=== PATIENT | female | born 1980 | race Caucasian/White ===

== ENCOUNTER 2017-05-10 17:57 | Emergency (ER) | payer SELFPAY ==
[~2017-05-10] VITALS: Ht 160 cm; Wt 60.0 kg
[~2017-05-10 17:57] MED LIST: IBUP600 PO
--- NOTE | 2017-05-10 18:19 | PD ---
HPI Chief Complaint: medical clearance Time Seen by Provider: 18:15 Travel History International Travel<30 days: No Contact w/Intl Traveler<30days: No Traveled to known affect area: No History of Present Illness HPI 36 year white female presents to emergency department after being discharged from retirement. The patient was discharged and [facility] picked the patient up and brought her to the facility here. She was admitted to the retirement under a [place] act due to alcohol intoxication. She states that she was there nearly 12 hours. The patient here has no complaints. She states that she was instructed to leave with [facility] since there is no transportation for her from the retirement. Patient denies any suicidal or homicidal ideation. No toxic ingestions. No medical complaints. PFSH Past Medical History Anxiety: Yes Depression: Yes Cancer: No Diabetes: No Diminished Hearing: No Glaucoma: No Hepatitis: No Hiatal Hernia: No Hypertension: Yes Kidney Stones: Yes Psychiatric: Yes Respiratory: No Immunizations Current: Yes Seizures: Yes (PT STATES " YRS AGO RELATED TO DRUG USE") Thyroid Disease: No Tetanus Vaccination: < 5 Years ?: Not : 4 Para: 0 Miscarriage: 1 : 3 Past Surgical History Pacemaker: No Tonsillectomy: Yes Other Surgery: Yes (BREAST AUGUMENTATION x 2) Social History Alcohol Use: Yes (SOCIALLY MIX DRINKS,BEER) Tobacco Use: No Substance Use: No (HX OF USE - CANNABIS USE) Allergies-Medications (Allergen,Severity, Reaction): Coded Allergies: No Known Allergies (Verified , 07/16/15) Reported Meds & Prescriptions Reported Meds & Active Scripts Active Motrin 600 Mg Tab (Ibuprofen) 600 Mg Tab 600 Mg PO Q6H PRN Review of Systems Except as stated in HPI: all other systems reviewed are Neg Physical Exam Narrative GENERAL: This is a well-nourished, well-developed patient, in no apparent distress. Patient ambulates freely. She appears sober. SKIN: No rashes, ecchymoses or lesions. Warm and dry. HEAD: Atraumatic. Normocephalic. EYES: PERRL, EOMI, no discharge or injection. No scleral icterus. EARS: Clear NOSE: Nasal turbinates appear normal. THROAT: Mucosa pink and moist. Airway patent. NECK: Trachea midline. supple, moves head freely. LUNGS: Clear to auscultation. CV: Regular in rhythm. ABDOMEN: Soft nontender. EXT: No clubbing cyanosis or edema. MDM Medical Decision Making Medical Screen Exam Complete: Yes Emergency Medical Condition: Yes Medical Record Reviewed: Yes Differential Diagnosis Differential diagnoses: Alcohol intoxication, substance abuse, medical clearance Narrative Course The patient has no medical complaints. Patient is been medically cleared. Diagnosis Primary Impression: medical clearance exam Additional Instructions: Rest. Increase fluids. Avoid alcohol. Avoid illegal substances. Follow-up with [facility] for detox. Do not operate a car or any heavy machinery under the influence of alcohol or drugs. Follow-up with a medical doctor this week. Return to the ER for emergencies Med/Other Pt SpecificInfo: No Meds Exist/No RX given Disposition: 01 DISCHARGE HOME Condition: Stable Chetan Kingsley May 10, 2017 18:19
[2017-05-10 18:20] VITALS: BP 120/70; PULSE 65; RESP 16; TEMP 98.6; O2SAT 99
[2017-05-10 18:29] VITALS: BP 124/72
== END 2017-05-10 18:32 | disposition home or self-care (01) ==
LOC: NEDAMB 17:57
DX: F10.129 Alcohol abuse with intoxication, unspecified (principal); F41.9 Anxiety disorder, unspecified; F32.9 Major depressive disorder, single episode, unspecified; I10 Essential (primary) hypertension; R56.9 Unspecified convulsions; Z87.442 Personal history of urinary calculi; Z79.1 Long term (current) use of non-steroidal anti-inflammatories (NSAID)
CPT/HCPCS: 99283

== ENCOUNTER 2017-06-23 21:30 | Observation (INO) | payer SELFPAY ==
[~2017-06-23] VITALS: Ht 157.5 cm; Wt 49.8 kg
[2017-06-23 21:30] VITALS: BP 141/84; PULSE 136; RESP 24; TEMP 98.2; O2SAT 100
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
[2017-06-23] MEDS ORDERED: SODIUM CHLOR 0.9% 1000 ML INJ 1,000 ML IV ONE (21:45)
[2017-06-23] MEDS ORDERED: LORazepam 2 MG/ML VIAL IV PUSH ONE ×2 (21:45→22:00)
[2017-06-23 22:07] LABS: AUTOMATED NEUTROPHIL # 4.1 TH/MM3 (1.8-7.7); BASOPHIL % 0.6 % (0.0-2.0); EOSINOPHIL % 0.1 % (0.0-4.0); HEMATOCRIT 39.2 % (35.0-46.0); HEMO FLAGS DIFF FINAL; LYMPH % 25.1 % (9.0-44.0); LYMPHOCYTE # 1.5 TH/MM3 (1.0-4.8); MEAN CELL VOLUME 89.4 FL (80.0-100.0); MEAN CORPUSCULAR HEMOGLOBIN 29.5 PG (27.0-34.0); NEUT % 69.2 % (16.0-70.0); PLATELET COUNT 340 TH/MM3 (150-450); RED BLOOD COUNT 4.39 MIL/MM3 (4.00-5.30); RED CELL DISTRIBUTION WIDTH 13.3 % (11.6-17.2); WHITE BLOOD COUNT 5.9 TH/MM3 (4.0-11.0)
[2017-06-23 22:14] LABS: POTASSIUM 3.7 MEQ/L (3.5-5.1)
[2017-06-23 22:17] LABS: BICARBONATE 25.5 MEQ/L (21.0-32.0)
--- NOTE | 2017-06-23 22:45 | PD ---
Physical Exam Date Seen by Provider: Jun 23, 2017 Time Seen by Provider: 22:41 Narrative Crying, hysterical, anxious 36-year-old female screaming loudly and irrationally. Patient has laceration on her right hand and right foot that I was asked to repair by the provider Dr Odonnell. Patient to anxious and hysterical at this time. Dr. Odonnell ordered IV Ativan to help calm the patient. Patient became calm and I was able to used lidocaine to numb the right hand laceration however the patient still complained of pain when pressure was applied to the right hand and it felt as if there might be a foreign body in place. X-ray of the right hand and foot ordered and pending to assess for foreign bodies. Data Data Last Documented VS Vital Signs Date Time Temp Pulse Resp B/P (MAP) Pulse Ox O2 Delivery O2 Flow Rate FiO2 06/23/17 21:30 98.2 136 24 141/84 (103) 100 Orders Orders Iv Access Insert/Monitor (06/23/17 21:39) Alcohol (Ethanol) (06/23/17 21:39) Complete Blood Count With Diff (06/23/17 21:39) Basic Metabolic Panel (Bmp) (06/23/17 21:39) Sodium Chlor 0.9% 1000 Ml Inj (Ns 1000 M (06/23/17 21:45) Acquisition Associate / Telemetry [email or web address].Q8H (06/23/17 21:39) Lorazepam Inj (Ativan Inj) (06/23/17 21:45) Lorazepam Inj (Ativan Inj) (06/23/17 22:00) Foot, Complete ([id number]) (06/23/17 22:05) Hand, Complete ([id number]) (06/23/17 22:05) Labs Laboratory Tests Test 06/23/17 22:00 White Blood Count 5.9 TH/MM3 Red Blood Count 4.39 MIL/MM3 Hemoglobin 12.9 GM/DL Hematocrit 39.2 % Mean Corpuscular Volume 89.4 FL Mean Corpuscular Hemoglobin 29.5 PG Mean Corpuscular Hemoglobin Concent 33.0 % Red Cell Distribution Width 13.3 % Platelet Count 340 TH/MM3 Mean Platelet Volume 7.2 FL Neutrophils (%) (Auto) 69.2 % Lymphocytes (%) (Auto) 25.1 % Monocytes (%) (Auto) 5.0 % Eosinophils (%) (Auto) 0.1 % Basophils (%) (Auto) 0.6 % Neutrophils # (Auto) 4.1 TH/MM3 Lymphocytes # (Auto) 1.5 TH/MM3 Monocytes # (Auto) 0.3 TH/MM3 Eosinophils # (Auto) 0.0 TH/MM3 Basophils # (Auto) 0.0 TH/MM3 CBC Comment DIFF FINAL Differential Comment Blood Urea Nitrogen 9 MG/DL Creatinine 0.91 MG/DL Random Glucose 87 MG/DL Calcium Level 8.5 MG/DL Sodium Level 145 MEQ/L Potassium Level 3.7 MEQ/L Chloride Level 110 MEQ/L Carbon Dioxide Level 25.5 MEQ/L Anion Gap 10 MEQ/L Estimat Glomerular Filtration Rate 70 ML/MIN Ethyl Alcohol Level 304 MG/DL MDM Supervised Visit with GISEL: Yes Narrative Course I was asked by provider Dr. Odonnell to repair laceration on the palmar aspect of the right hand at the base of the thumb and a laceration laceration of the right foot. X-ray of the right hand and right foot were ordered to assess for foreign bodies. The right hand x-ray was unremarkable. The right foot showed a small radiopaque leak aspect. Right hand laceration is approximately 4 cm in length. Right foot laceration is approximately 1 cm in length. Right hand laceration repair was attempted. Hand laceration was numbed with 1% lidocaine. Bleeding was profuse. 3 sutures, 1 a [id number] suture were placed but the bleeding was unable to be controlled. The patient's hand started swelling after the sutures were in place and the patient started screaming uncontrollably and pain. Dr Odonnell called to assess the situation. He believes the radial artery might have been necked. The sutures were removed and a pressure dressing was applied to the right hand. Hand surgeon called to further assess the right hand laceration. Right foot laceration repaired. Please see my procedural narrative. Dr. Odonnell retains care of this patient. Please see his documentation for further details and disposition. Procedures Procedure Narrative LACERATION LOCATION: Dorsal aspect of right foot. LENGTH: 1 cm NUMBER OF STITCHES/GARRETT: 1 x 4. 0 Prolene REPAIR: The area of the laceration was prepped with Betadine and sterilely draped. The laceration was infiltrated with As a lidocaine. The wound was copiously irrigated and explored without evidence of foreign body, tendon injury or neurovascular injury. The wound was closed using one simple interrupted suture using 4. 0 Prolene. This was a single layer repair. A sterile dressing was applied. The patient was advised to keep the dressing clean and dry. Patient tolerated the procedure well. Yara Hernandez Jun 23, 2017 22:45
--- NOTE | 2017-06-23 22:58 | RADRPT ---
EXAM DATE/TIME: 06/23/2017 22:17 [facility] COMPARISON: No previous studies available for comparison. INDICATIONS : Evaluate for foreign body. MEDICAL HISTORY : None. SURGICAL HISTORY : None. ENCOUNTER: Initial ACUITY: 1 day PAIN SCORE: Non-responsive. LOCATION: Right foot. FINDINGS: There is a miniscule radiodense fragment projecting medial to the mid distal aspect of the first meta tarsal seen on the frontal view of the foot, not clearly identified on the other 2 views. This could be a tiny glass fragment in or on the superficial soft tissues of the medial right forefoot. No other radiodense foreign object is appreciated. The bony elements appear grossly intact. Mild hallux valgu s present. CONCLUSION: Tiny radiodense spenser seen on the frontal view on the medial forefoot as described Akbar Hernandez MD on June 23, 2017 at 22:54 Board Certified Radiologist. This report was verified electronically.
--- NOTE | 2017-06-23 22:58 | RADRPT ---
EXAM DATE/TIME: 06/23/2017 22:17 [facility] COMPARISON: No previous studies available for comparison. INDICATIONS : Evaluate for foreign body. MEDICAL HISTORY : None. SURGICAL HISTORY : None. ENCOUNTER: Initial ACUITY: 1 day PAIN SCORE: Non-responsive. LOCATION: Right hand. FINDINGS: Three view examination of the right hand demonstrates no soft tissue swelling, dislocation, or fractu re. The carpal bones appear intact. The interphalangeal and metacarpophalangeal joints are intact. Bony mineralization is normal. CONCLUSION: Unremarkable examination of the right hand. Akbar Hernandez MD on June 23, 2017 at 22:56 Board Certified Radiologist. This report was verified electronically.
[2017-06-23 23:00] VITALS: BP 147/82; PULSE 112; RESP 18; O2SAT 99
[2017-06-24] VITALS: BP 137/97; PULSE 113; RESP 18; TEMP 97.4; O2SAT 100
[2017-06-24 00:10] VITALS: BP 137/97; PULSE 113; RESP 18; TEMP 97.4; O2SAT 100
[2017-06-24] MEDS ORDERED: SODIUM CHLORIDE 0.9% FLUSH 10 ML FLUSH IV FLUSH PRN (00:15)
[2017-06-24] MEDS ORDERED: NALOXONE HCL 0.4 MG/ML AMP IV PUSH PRN (00:15)
[2017-06-24] MEDS ORDERED: THIAMINE HCL 100 MG TAB PO ONE (00:15)
[2017-06-24] MEDS: MORPHINE SULFATE 2 MG/ML INJ IV PUSH PRN ×2 (00:28→03:41)
[2017-06-24 01:20] VITALS: BP 154/77
[2017-06-24 04:00] VITALS: BP 133/65; PULSE 117; RESP 18; TEMP 98.3; O2SAT 99
[2017-06-24] MEDS ORDERED: NEOMYCIN/POLYMYXIN 1 ML G.U. IRRIGANT ONE (05:35)
[2017-06-24] MEDS ORDERED: LIDOCAINE HCL 2% 50 ML VIAL ONE (05:36)
[2017-06-24] MEDS ORDERED: ONDANSETRON HCL 4 MG/2 ML VIAL ONE (05:46)
[2017-06-24] MEDS ORDERED: FAMOTIDINE 20 MG/2 ML VIAL ONE ×2 (05:57→06:00)
[2017-06-24] MEDS ORDERED: APREPITANT 40 MG CAP ONE (05:58)
[2017-06-24] MEDS ORDERED: ceFAZolin 2 GM PREMIX 50 ML ONE (06:04)
[2017-06-24] MEDS ORDERED: METOPROLOL TARTRATE 25 MG TAB PO PRN (06:15)
[2017-06-24] MEDS ORDERED: LACTATED RINGER'S 1000 ML IV PRN (06:15)
[2017-06-24] MEDS ORDERED: CHLORHEXIDINE GLUCONATE 2 % 1 PACK (2 CLOTHS) TOPICAL PRN (06:15)
[2017-06-24] MEDS ORDERED: INSULIN HUMAN REGULAR 1,000 UNITS/10 ML VIAL SQ PRN (06:15)
[2017-06-24] MEDS ORDERED: ceFAZolin 2 GM PREMIX 50 ML IV SCH (06:15)
[2017-06-24] MEDS ORDERED: SODIUM CHLORID 0.9% 500 ML IV PRN (06:15)
[2017-06-24] MEDS ORDERED: POVIDONE IODINE 5% (ANTISEPSIS KIT) 4 APPLICATIONS EACH NARE PRN (06:15)
[2017-06-24] MEDS ORDERED: METOCLOPRAMIDE HCL 10 MG/2 ML VIAL ONE (07:37)
--- NOTE | 2017-06-24 07:50 | PD.ORT.PN ---
Subjective Subjective Remarks 36yF s/p laceration right thenar eminence. Please see dictated notes. Patient denies paresthesias. Reports mild pain right thumb Objective Vitals Vital Signs Date Time Temp Pulse Resp B/P (MAP) Pulse Ox O2 Delivery O2 Flow Rate FiO2 06/24/17 05:25 97.8 127 20 141/100 (114) 100 06/24/17 04:00 98.3 117 18 133/65 (87) 99 06/24/17 01:20 100 16 154/77 (102) 99 06/24/17 00:10 97.4 113 18 137/97 (110) 100 06/24/17 00:00 97.4 113 18 137/97 (110) 100 06/23/17 23:00 112 18 147/82 (103) 99 Room Air 06/23/17 21:30 98.2 136 24 141/84 (103) 100 I/O 06/23/17 06/23/17 06/23/17 06/24/17 06/24/17 06/24/17 07:00 15:00 23:00 07:00 15:00 23:00 Intake Total 2000 ml 0 ml 700 ml Output Total 5 ml Balance 2000 ml 0 ml 695 ml Intake Oral 0 ml IV Total 2000 ml Other 700 ml Output Other 5 ml # Voids 2 # Bowel Movements 0 Result Diagram: 06/23/17219906/23/172199 Imaging Last 24 hours Impressions Hand X-Ray 06/23/172204 Signed Impressions: Service Date/Time: Friday, June 23, 2017 22:17 - CONCLUSION: Unremarkable examination of the right hand. Akbar Hernandez MD Foot X-Ray 06/23/172204 Signed Impressions: Service Date/Time: Friday, June 23, 2017 22:17 - CONCLUSION: Tiny radiodense spenser seen on the frontal view on the medial forefoot as described Akbar Hernandez MD Objective Remarks Dressing in place, compartments soft and compressible, <2 sec capillary refill all fingers, 2+ radial pulse, able to fire fpl/epl Assessment & Plan Assessment and Plan 36yF POD0 s/p I&D right thumb, hemostasis, exploration penetrating wound and complex closure -No arterial bleeding, muscle viable, no compartment syndrome -Okay to d/c home, followup in office Sloane Brooks MD Jun 24, 2017 07:50
[2017-06-24 08:00] VITALS: BP 150/98; PULSE 118; RESP 20; TEMP 97.1; O2SAT 98
[2017-06-24] MEDS ORDERED: SODIUM CHLORIDE 0.9% FLUSH 10 ML FLUSH IV FLUSH SCH (09:00)
[2017-06-24] MEDS ORDERED: THIAMINE HCL 100 MG TAB PO SCH (09:00)
[2017-06-24] MEDS ORDERED: SODIUM CHLOR 0.9% 1000 ML INJ 1,000 ML IV ONE (09:30)
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
[2017-06-24 12:00] VITALS: BP 134/78; PULSE 87; RESP 18; TEMP 97.2; O2SAT 98
[2017-06-24] MEDS ORDERED: ONDANSETRON HCL 4 MG/2 ML VIAL IV PUSH ONE (12:00)
[2017-06-24] MEDS ORDERED: PROPOFOL 200 MG/20 ML AMP IV ONE (12:00)
--- NOTE | 2017-06-24 16:07 | EKG ---
Date Performed: 06/24/2017 Time Performed: 01:12:16 PTAGE: 36 years EKG: SINUS TACHYCARDIA ABNORMAL RHYTHM ECG Compared to prior tracing no significant change PREVIOUS TRACING : 12/02/2011 18.42 DOCTOR: Wali Bagley Interpretating Date/Time 06/24/2017 16:05:39
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
--- NOTE | 2017-06-28 19:13 | MP ---
cc: SLOANE BROOKS MD DATE OF SURGERY: 06/24/2017. PREOPERATIVE DIAGNOSIS: Open wound right thumb with concern for arterial and muscular injury. POSTOPERATIVE DIAGNOSIS: 1. Open wound right thumb. 2. Intrinsic muscle laceration right thumb. 3. Complex wound right thumb OPERATIVE PROCEDURE PERFORMED: 1. Exploration penetrating wound right thumb. 2. Irrigation and debridement skin and subcutaneous tissue and muscle right thumb. 3. Intrinsic muscle repair right thumb. 4. Complex closure less than 2.5 cm right thumb. SURGEON: Dr. Sloane Brooks ANESTHESIA: General and local. TOURNIQUET TIME: 2 minutes at 250 mmHg. INDICATIONS FOR THE PROCEDURE: Paulina Funez is a 36-year-old female who sustained a laceration over the volar aspect of the right thumb proximal to the MP joint with glass. The emergency room had trouble controlling the bleeding and requested surgical intervention. The patient elected to proceed. Risks were explained but not limited to wound complications, infection, stiffness, pain, paresthesias, need for additional surgeries and she elected to proceed. DESCRIPTION OF THE PROCEDURE IN DETAIL: The patient was identified in the preoperative holding area and the correct extremity was marked. The patient was taken to the operating room where anesthesia was induced. The right upper extremity was prepped and draped in normal sterile fashion. The tourniquet was inflated to 250 mmHg for two minutes. The wound was extended slightly proximally and distally. There was no evidence of retained foreign body. The wound was explored. There was a small branch which was bleeding which was coagulated without complication. The tourniquet was released and the patient good capillary refill. Additional hemostasis was obtained. There was some damage to the intrinsic muscle of the thumb which was repaired with 4-0 PDS. The wound was irrigated with 3 liters of antibiotic saline including skin, subcutaneous tissue and muscle and the wound due to the glass laceration was closed in a complex manner with chromic. Following this, the patient had soft compartments of the thumb and good capillary refill to the thumb. She was placed into a soft dressing and awoken from anesthesia without complications after approximately 10 mL of 2% lidocaine with epinephrine was used to perform local anesthesia. The patient will be admitted to the medical service and observed and I will see her in the office in one to two weeks. MD SOCORRO Pacheco /5:33 PM /7:02 PM [place]
== END 2017-06-24 14:31 | disposition home or self-care (01) ==
LOC: PHED 21:30 → PHEDA 06-24 00:10 → INTOOBSV 06-24 00:10 → PH3B 06-24 01:33
PROVIDERS: ADMIT Family Medicine; ATTEND Family Medicine
DX: S61.011A Laceration without foreign body of right thumb without damage to nail, initial encounter (principal); S91.311A Laceration without foreign body, right foot, initial encounter; I10 Essential (primary) hypertension; E86.0 Dehydration; F10.229 Alcohol dependence with intoxication, unspecified; W25.XXXA Contact with sharp glass, initial encounter
CPT/HCPCS: 00300; 12001; 13131; 73130; 73630; 80048; 80307; 85025; 93005; 96361; 96374; 96375; 96376; 99285; G0378; J0690; J2060; J2270; J2405; J2765; J3010; J7030; J7120; J8501

== ENCOUNTER 2017-07-07 01:15 | Emergency (ER) | payer OTHER ==
[2017-07-07 01:20] VITALS: BP 171/128; PULSE 128; RESP 22; O2SAT 99
[2017-07-07] MEDS ORDERED: SODIUM CHLOR 0.9% 1000 ML INJ 1,000 ML IV ONE (01:30)
[2017-07-07] MEDS ORDERED: HALOPERIDOL LACTATE 5 MG/ML AMP IM ONE (01:30)
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
[2017-07-07 01:51] VITALS: BP 136/91; PULSE 112; RESP 20; O2SAT 98
== END 2017-07-07 03:41 | disposition home or self-care (01) ==
LOC: NEPD 01:15
DX: F10.920 Alcohol use, unspecified with intoxication, uncomplicated (principal)
CPT/HCPCS: 96360; 96372; 99284; J1630; J7030

== ENCOUNTER 2017-07-07 20:55 | Emergency (ER) | payer SELFPAY ==
[~2017-07-07] VITALS: Ht 162.6 cm; Wt 59.0 kg
[2017-07-07 21:00] VITALS: BP 155/113; PULSE 100; RESP 18; TEMP 98.4; O2SAT 100
[2017-07-07 21:37] LABS: POTASSIUM 3.8 MEQ/L (3.5-5.1)
--- NOTE | 2017-07-07 21:59 | PD ---
HPI Chief Complaint: Alcohol/Drug Intoxication Time Seen by Provider: 21:09 Travel History International Travel<30 days: No Contact w/Intl Traveler<30days: No Traveled to known affect area: No History of Present Illness HPI The patient is a 36-year-old female who presents to the emergency department via EMS after being found on the ground, in front of her mother's house, intoxicated according to EMS. According to EMS the patient was recently at [facility] as a [facility] for alcohol intoxication. The mother states the patient is currently homeless, has been coming and going from her house over the last week, but she is found her intoxicated 3 times this week. Upon arrival the patient is able to tell me she has been drinking alcohol , however, is unable to quantify the amount of alcohol. She denies any physical complaints, however, does fall asleep easily. Symptoms are moderate, possibly exacerbated by alcohol intoxication, and there are no current alleviating factors. PFSH Past Medical History Arthritis: No Anxiety: Yes Depression: Yes Cancer: No Cardiovascular Problems: Yes Cerebrovascular Accident: No Diabetes: No Diminished Hearing: No Endocrine: No Gastrointestinal Disorders: No Glaucoma: No Genitourinary: No Headaches: No Hepatitis: No Hiatal Hernia: No Hypertension: Yes Immune Disorder: No Implanted Vascular Access Dvce: No Kidney Stones: Yes Medical other: No Musculoskeletal: No Neurologic: No Psychiatric: Yes Reproductive: No Respiratory: No Immunizations Current: Yes Migraines: No Seizures: Yes (PT STATES " YRS AGO RELATED TO DRUG USE") Thyroid Disease: No Tetanus Vaccination: < 5 Years Influenza Vaccination: No ?: Unknown LMP: 2 months ago, states irreg menses : 4 Para: 0 Miscarriage: 1 : 3 Past Surgical History Abdominal Surgery: No Cardiac Surgery: No Ear Surgery: No Endocrine Surgery: No Eye Surgery: No Genitourinary Surgery: No Gynecologic Surgery: No Neurologic Surgery: No Oral Surgery: No Pacemaker: No Thoracic Surgery: Yes (bilat breast augmentation) Tonsillectomy: Yes Other Surgery: Yes (BREAST AUGUMENTATION x 2) Social History Alcohol Use: Yes (SOCIALLY MIX DRINKS,BEER) Tobacco Use: No Substance Use: Yes (ETOH ABUSE) Allergies-Medications (Allergen,Severity, Reaction): Coded Allergies: No Known Allergies (Verified Adverse Reaction, Unknown, 07/07/17) Reported Meds & Prescriptions Reported Meds & Active Scripts Active No Active Prescriptions or Reported Medications Review of Systems ROS Limitations: Intoxication Except as stated in HPI: all other systems reviewed are Neg Psychiatric: Positive: Substance Abuse (alcohol abuse) Physical Exam Narrative GENERAL: 36-year-old female appears her stated age, is sleeping but is arousable to verbal and painful stimuli. SKIN: Focused skin assessment warm/dry. HEAD: Atraumatic. Normocephalic. EYES: Mild slight disconjugate gaze. ENT: No nasal bleeding or discharge. Breath smells of alcohol. NECK: Trachea midline. No JVD. CARDIOVASCULAR: Regular rate and rhythm. No murmur appreciated. RESPIRATORY: No accessory muscle use. Clear to auscultation. Breath sounds equal bilaterally. GASTROINTESTINAL: Abdomen soft, non-tender, nondistended. No guarding or rigidity. MUSCULOSKELETAL: No obvious deformities. No clubbing. No cyanosis. No edema. NEUROLOGICAL: Asleep, awakens to verbal and painful stimuli. Follows simple commands. 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 PSYCHIATRIC: Appears intoxicated. Data Data Last Documented VS Vital Signs Date Time Temp Pulse Resp B/P (MAP) Pulse Ox O2 Delivery O2 Flow Rate FiO2 07/07/17 21:15 100 18 100 Room Air 07/07/17 21:00 98.4 155/113 (127) Orders Orders Basic Metabolic Panel (Bmp) (07/07/17 21:15) Alcohol (Ethanol) (07/07/17 21:15) Admit Order (Ed Use Only) (07/07/17 ) Supervising Editor Trailer / Telemetry [email or web address] (07/07/17 22:00) Vital Signs (Adult) Q4H (07/07/17 22:00) Diet Heart Healthy (07/08/17 Breakfast) Activity Oob With Assistance (07/07/17 22:00) Labs Laboratory Tests Test 07/07/17 21:10 Blood Urea Nitrogen 10 MG/DL Creatinine 0.72 MG/DL Random Glucose 74 MG/DL Calcium Level 8.2 MG/DL Sodium Level 137 MEQ/L Potassium Level 3.8 MEQ/L Chloride Level 103 MEQ/L Carbon Dioxide Level 22.0 MEQ/L Anion Gap 12 MEQ/L Estimat Glomerular Filtration Rate 91 ML/MIN Ethyl Alcohol Level 427 MG/DL MDM Medical Decision Making Medical Screen Exam Complete: Yes Emergency Medical Condition: Yes Medical Record Reviewed: Yes Interpretation(s) Laboratory Tests Test 07/07/17 21:10 Blood Urea Nitrogen 10 MG/DL Creatinine 0.72 MG/DL Random Glucose 74 MG/DL Calcium Level 8.2 MG/DL Sodium Level 137 MEQ/L Potassium Level 3.8 MEQ/L Chloride Level 103 MEQ/L Carbon Dioxide Level 22.0 MEQ/L Anion Gap 12 MEQ/L Estimat Glomerular Filtration Rate 91 ML/MIN Ethyl Alcohol Level 427 MG/DL Differential Diagnosis Differential diagnosis includes alcohol intoxication, hyponatremia, substance abuse, alcohol abuse. Narrative Course BMP and alcohol level were sent to lab. Sodium is normal. Alcohol level was greater than 400. I had a discussion with mother bedside, the patient has been admitted to [facility], [place] and rehabilitation in the past, but continues to drink alcohol. The patient will be monitored in the emergency department and will be discharged when she is clinically sober and is able to ambulate no longer poses a threat to herself. Diagnosis Primary Impression: Alcohol intoxication Qualified Codes: F10.920 - Alcohol use, unspecified with intoxication, uncomplicated Patient Instructions: General Instructions Additional Instructions: Decrease alcohol intake. Follow-up at [facility], [place]. Med/Other Pt SpecificInfo: No Change to Meds Scripts No Active Prescriptions or Reported Meds Disposition: 01 DISCHARGE HOME Condition: Stable Moreno Minor MD Jul 07, 2017 21:58
[2017-07-07 23:12] VITALS: BP 141/95; PULSE 111; RESP 16; O2SAT 100
[2017-07-08 01:47] VITALS: BP 146/89; PULSE 125; RESP 16; O2SAT 99
[2017-07-08] MEDS ORDERED: SODIUM CHLOR 0.9% 1000 ML INJ 1,000 ML IV ONE (02:00)
[2017-07-08 03:18] VITALS: PULSE 103; RESP 12; O2SAT 100
[2017-07-08 04:38] VITALS: BP 116/75; PULSE 119; RESP 16; O2SAT 100
== END 2017-07-08 05:34 | disposition home or self-care (01) ==
LOC: PHEFT 20:55
DX: F10.920 Alcohol use, unspecified with intoxication, uncomplicated (principal); I10 Essential (primary) hypertension; F32.9 Major depressive disorder, single episode, unspecified; Y90.8 Blood alcohol level of 240 mg/100 ml or more; Z59.0 Homelessness
CPT/HCPCS: 80048; 80307; 96360; 99284; J7030

== ENCOUNTER 2017-08-12 00:21 | Emergency (ER) | payer OTHER ==
[~2017-08-12] VITALS: Ht 167.6 cm; Wt 66.0 kg
[2017-08-12 00:34] VITALS: BP 152/107; PULSE 120; RESP 16; TEMP 98.7; O2SAT 96
--- NOTE | 2017-08-12 00:37 | PD ---
HPI Chief Complaint: Time Seen by Provider: 00:28 Travel History International Travel<30 days: No Contact w/Intl Traveler<30days: No Traveled to known affect area: No History of Present Illness HPI 36-year-old white female known to the medical staff and myself for prior evaluations due to alcohol intoxication. The patient here was placed on her due to her level of intoxication and nowhere to go. She was asked to leave her residence. The patient was too intoxicated to care for herself and therefore was placed over . Patient is too intoxicated to render any meaningful history. She is handling her secretions well. There is no evidence of trauma. PFSH Past Medical History Arthritis: No Anxiety: Yes Depression: Yes Cancer: No Cardiovascular Problems: Yes Cerebrovascular Accident: No Diabetes: No Diminished Hearing: No Endocrine: No Gastrointestinal Disorders: No Glaucoma: No Genitourinary: No Headaches: No Hepatitis: No Hiatal Hernia: No Hypertension: Yes Immune Disorder: No Implanted Vascular Access Dvce: No Kidney Stones: Yes Musculoskeletal: No Neurologic: No Psychiatric: Yes Reproductive: No Respiratory: No Immunizations Current: Yes Migraines: No Seizures: Yes (PT STATES " YRS AGO RELATED TO DRUG USE") Thyroid Disease: No : 4 Para: 0 Miscarriage: 1 : 3 Past Surgical History Abdominal Surgery: No Cardiac Surgery: No Ear Surgery: No Endocrine Surgery: No Eye Surgery: No Genitourinary Surgery: No Gynecologic Surgery: No Neurologic Surgery: No Oral Surgery: No Pacemaker: No Thoracic Surgery: Yes (bilat breast augmentation) Tonsillectomy: Yes Other Surgery: Yes (BREAST AUGUMENTATION x 2) Social History Alcohol Use: Yes (SOCIALLY MIX DRINKS,BEER) Tobacco Use: No Substance Use: Yes (ETOH ABUSE) Allergies-Medications (Allergen,Severity, Reaction): Coded Allergies: No Known Allergies (Verified Adverse Reaction, Unknown, 07/07/17) Reported Meds & Prescriptions Reported Meds & Active Scripts Active No Active Prescriptions or Reported Medications Review of Systems ROS Limitations: Intoxication Physical Exam Narrative GENERAL: Well-nourished, well-developed patient. Appears heavily intoxicated SKIN: Warm and dry. HEAD: Normocephalic and atraumatic. EYES: No scleral icterus. No injection or drainage. ENT: No nasal drainage noted. Mucous membranes pink. Airway patent. NECK: Supple, trachea midline. Moves head freely without obvious discomfort. CARDIOVASCULAR: Regular rate and rhythm without murmurs, gallops, or rubs. RESPIRATORY: Breath sounds equal bilaterally. No accessory muscle use. GASTROINTESTINAL: Abdomen soft, non-tender, nondistended. EXTREMITIES: No cyanosis or edema. BACK: Nontender without obvious deformity. No CVA tenderness. NEURO: Patient is alert and oriented. no sensorimotor deficits. Nonfocal. Slurred speech. PSYCH: No delusions. No auditory or visual hallucinations. MDM Medical Decision Making Medical Screen Exam Complete: Yes Emergency Medical Condition: Yes Medical Record Reviewed: Yes Differential Diagnosis Differential diagnoses: Alcohol intoxication, substance abuse, electrolyte abnormality, malingering Narrative Course The patient will be allowed to sleep it off here in the ER. When she exhibits sobriety patient's [facility] act will be lifted and the patient will be allowed to go home. If a sober individual was found she may be released in the custody of the sober individual as well. This is alcohol intoxication, history of alcohol abuse Diagnosis Primary Impression: Alcohol intoxication Qualified Codes: F10.920 - Alcohol use, unspecified with intoxication, uncomplicated Additional Instructions: Rest. Increase fluids. Avoid alcohol. Avoid illegal substances. Follow-up with [facility] for detox. Do not operate a car or any heavy machinery under the influence of alcohol or drugs. Follow-up with a medical doctor this week. Return to the ER for emergencies Med/Other Pt SpecificInfo: No Meds Exist/No RX given Scripts No Active Prescriptions or Reported Meds Disposition: 01 DISCHARGE HOME Condition: Stable Chetan Kingsley Aug 12, 2017 00:37
== END 2017-08-12 03:00 | disposition home or self-care (01) ==
LOC: NEPD 00:21
DX: F10.129 Alcohol abuse with intoxication, unspecified (principal); F41.9 Anxiety disorder, unspecified; I10 Essential (primary) hypertension; R56.9 Unspecified convulsions; Z87.442 Personal history of urinary calculi
CPT/HCPCS: 99281

== ENCOUNTER 2017-08-12 20:34 | Emergency (ER) | payer OTHER ==
[~2017-08-12] VITALS: Ht 162.6 cm; Wt 55.0 kg
[2017-08-12 20:50] VITALS: BP 139/82; PULSE 122; RESP 19; TEMP 98.7; O2SAT 99
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
--- NOTE | 2017-08-13 15:35 | EKG ---
Date Performed: 08/12/2017 Time Performed: 20:45:46 PTAGE: 36 years EKG: SINUS TACHYCARDIA NONSPECIFIC T-WAVE ABNORMALITY ABNORMAL RHYTHM ECG NO PREVIOUS TRACING DOCTOR: Juan Ramon Rosario Interpretating Date/Time 08/13/2017 15:33:51
== END 2017-08-13 03:29 | disposition home or self-care (01) ==
LOC: NEPD 20:34
DX: F10.129 Alcohol abuse with intoxication, unspecified (principal); R00.0 Tachycardia, unspecified; R56.9 Unspecified convulsions; F41.9 Anxiety disorder, unspecified; I10 Essential (primary) hypertension; Z87.442 Personal history of urinary calculi
CPT/HCPCS: 93005; 99283

== ENCOUNTER 2017-09-28 15:32 | Emergency (ER) | payer OTHER ==
[2017-09-28 18:32] VITALS: BP 122/100; PULSE 113; RESP 18; TEMP 98.2; O2SAT 100
[2017-09-28] MEDS ORDERED: ONDANSETRON ODT 4 MG TAB PO ONE (20:00)
--- NOTE | 2017-09-28 21:06 | PD ---
HPI Chief Complaint: Alcohol/Drug Intoxication Time Seen by Provider: 21:00 Travel History International Travel<30 days: No Contact w/Intl Traveler<30days: No Traveled to known affect area: No History of Present Illness HPI 37-year-old white female alcoholic known to myself for ER visits for the same presentation presents today under act due to alcohol intoxication. The patient is heavily intoxicated. She has no medical complaints per there is no evidence of acute trauma. PFSH Past Medical History Arthritis: No Anxiety: Yes Depression: Yes Cancer: No Cardiovascular Problems: Yes Cerebrovascular Accident: No Diabetes: No Diminished Hearing: No Endocrine: No Gastrointestinal Disorders: No Glaucoma: No Genitourinary: No Headaches: No Hepatitis: No Hiatal Hernia: No Hypertension: Yes Immune Disorder: No Implanted Vascular Access Dvce: No Kidney Stones: Yes Musculoskeletal: No Neurologic: No Psychiatric: Yes Reproductive: No Respiratory: No Immunizations Current: Yes Migraines: No Seizures: Yes (PT STATES " YRS AGO RELATED TO DRUG USE") Thyroid Disease: No Tetanus Vaccination: < 5 Years ?: Not : 4 Para: 0 Miscarriage: 1 : 3 Past Surgical History Abdominal Surgery: No Cardiac Surgery: No Ear Surgery: No Endocrine Surgery: No Eye Surgery: No Genitourinary Surgery: No Gynecologic Surgery: No Neurologic Surgery: No Oral Surgery: No Pacemaker: No Thoracic Surgery: Yes (bilat breast augmentation) Tonsillectomy: Yes Other Surgery: Yes (BREAST AUGUMENTATION x 2) Social History Alcohol Use: Yes Tobacco Use: No Substance Use: No Allergies-Medications (Allergen,Severity, Reaction): Coded Allergies: No Known Allergies (Verified Adverse Reaction, Unknown, 09/28/17) Reported Meds & Prescriptions Reported Meds & Active Scripts Active No Active Prescriptions or Reported Medications Review of Systems ROS Limitations: Intoxication Physical Exam Narrative GENERAL: Well-nourished, well-developed patient. Smells of EtOH and appears intoxicated SKIN: Warm and dry. HEAD: Normocephalic and patient has a healing abrasion to the bridge of the nose which does not appear to be acute today EYES: No scleral icterus. No injection or drainage. ENT: No nasal drainage noted. Mucous membranes pink. Airway patent. NECK: Supple, trachea midline. Moves head freely without obvious discomfort. CARDIOVASCULAR: Regular rate and rhythm without murmurs, gallops, or rubs. RESPIRATORY: Breath sounds equal bilaterally. No accessory muscle use. GASTROINTESTINAL: Abdomen soft, non-tender, nondistended. EXTREMITIES: No cyanosis or edema. BACK: Nontender without obvious deformity. No CVA tenderness. NEURO: Patient is alert and oriented. no sensorimotor deficits. Nonfocal. Slurred speech. PSYCH: No delusions. No auditory or visual hallucinations. Data Data Last Documented VS Vital Signs Date Time Temp Pulse Resp B/P (MAP) Pulse Ox O2 Delivery O2 Flow Rate FiO2 09/28/17 18:32 98.2 113 18 122/100 (107) 100 Orders Orders Ondansetron Odt (Zofran Odt) (09/28/17 20:00) Ed Discharge Order (09/28/17 22:39) MDM Medical Decision Making Medical Screen Exam Complete: Yes Emergency Medical Condition: Yes Medical Record Reviewed: Yes Differential Diagnosis Differential diagnoses: Alcohol intoxication, substance abuse, electrolyte abnormality, malingering Narrative Course The patient has been sobering appear in the ER for several hours. The patient still appears intoxicated but I feel comfortable letting her go home with a sober individual. The patient has been here nearly 8 hours. She has been up to the bathroom and ambulates with a strong gait. The patient appears sober at this time. The patient will be allowed to go home by er This is alcohol intoxication, alcoholism Diagnosis Primary Impression: Alcohol intoxication Qualified Codes: F10.920 - Alcohol use, unspecified with intoxication, uncomplicated Additional Impression: Alcoholism Patient Instructions: General Instructions Additional Instructions: Rest. Increase fluids. Avoid alcohol. Avoid illegal substances. Follow-up with [facility] for detox. Do not operate a car or any heavy machinery under the influence of alcohol or drugs. Follow-up with a medical doctor this week. Return to the ER for emergencies Med/Other Pt SpecificInfo: No Meds Exist/No RX given Scripts No Active Prescriptions or Reported Meds Disposition: 01 DISCHARGE HOME Condition: Stable Chetan Kingsley Sep 28, 2017 21:06
== END 2017-09-28 23:43 | disposition home or self-care (01) ==
LOC: NEDAMB 15:32 → NEPD 23:43
DX: F10.229 Alcohol dependence with intoxication, unspecified (principal)
CPT/HCPCS: 99283

== ENCOUNTER 2017-11-05 08:58 | Emergency (ER) | payer SELFPAY ==
[~2017-11-05] VITALS: Ht 157.5 cm; Wt 50.7 kg
[2017-11-05 09:00] VITALS: BP 149/98; PULSE 138; RESP 18; TEMP 97.6; O2SAT 98
[2017-11-05] MEDS ORDERED: KETOROLAC TROMETHAMINE 60 MG/2 ML (IM) VIAL IM ONE (09:30)
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
== END 2017-11-05 10:18 | disposition home or self-care (01) ==
LOC: PHEFT 08:58
DX: R07.81 Pleurodynia (principal); I10 Essential (primary) hypertension
CPT/HCPCS: 71101; 96372; 99283; J1885

== ENCOUNTER 2017-11-06 21:16 | Emergency (ER) | payer SELFPAY ==
[~2017-11-06] VITALS: Ht 157.5 cm; Wt 51.6 kg
[2017-11-06 21:21] VITALS: BP 161/110; PULSE 133; RESP 18; TEMP 97; O2SAT 97
[2017-11-06] MEDS ORDERED: KETOROLAC TROMETHAMINE 60 MG/2 ML (IM) VIAL IM ONE (22:00)
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
== END 2017-11-06 22:37 | disposition home or self-care (01) ==
LOC: PHEFT 21:16
DX: S20.212D Contusion of left front wall of thorax, subsequent encounter (principal); I10 Essential (primary) hypertension; F41.9 Anxiety disorder, unspecified; F32.9 Major depressive disorder, single episode, unspecified; Y04.2XXD Assault by strike against or bumped into by another person, subsequent encounter; Z87.442 Personal history of urinary calculi
CPT/HCPCS: 71045; 96372; 99283; J1885